=== PATIENT | male | born 1955 | race Caucasian/White ===

== ENCOUNTER → 2021-03-17 | Outpatient (CLI) | payer BC ==
--- NOTE | 2021-03-17 12:29 | RAD ---
EXAM: Chest, 2 views. HISTORY: Shortness of breath. COMPARISON: None. FINDINGS: 2 views of the chest are obtained. There is no infiltrate, pleural effusion or pneumothorax . The heart is normal in size. IMPRESSION: No acute pulmonary finding. Electronically signed by: Yani Douglas MD (03/17/2021 12:26 PM) [facility]
== END ==
LOC: RAD 10:45
PROVIDERS: ATTEND Internal Medicine Pulmonary Disease
DX: R06.02 Shortness of breath (principal)
CPT/HCPCS: 71046

== ENCOUNTER → 2021-03-28 | Outpatient (CLI) | payer BC ==
--- NOTE | 2021-03-28 11:54 | CARD ---
MR#: [id number] Date of Study: 03/28/2021 Ordering Physician: SCOTT PAN, Referring Physician: SCOTT PAN Tech: Patricia العراقي [facility] APPROVED REPORT EXAM: Two-dimensional and M-mode echocardiogram with Doppler and color Doppler. Other Information Quality : AverageHR: 61bpm Rhythm : NSR INDICATION Palpitations RISK FACTORS Hypertension 2D DIMENSIONS RVDd3.9 (2.9-3.5cm)Left Atrium(2D)5.2 (1.6-4.0cm) IVSd1.5 (0.7-1.1cm)Aortic Root(2D)3.8 (2.0-3.7cm) LVDd4.5 (3.9-5.9cm)LVOT Diameter2.6 (1.8-2.4cm) PWd1.2 (0.7-1.1cm)LVDs3.0 (2.5-4.0cm) FS (%) 34.0 %SV57.9 ml LVEF(%)63.1 (>50%) Aortic Valve AoV Peak Zach.138.6cm/sAoV VTI32.3cm AO Peak GR.7.7mmHgLVOT Peak Zach.124.2cm/s AO Mean GR.4mmHgAVA (VMAX)4.59cm2 Mitral Valve MV E Gvsdydjg99.0cm/sMV DECEL LICZ036db MV A Qswvkjrm77.4cm/sE/A Ratio0.9 Pulmonary Valve PV Peak Ieigwzqz765.8cm/s Tricuspid Valve TR P. Mwoinfyk898er/sTR Peak Gr.28mmHg LEFT VENTRICLE The left ventricle is normal size. There is mild concentric left ventricular hypertrophy. The left ve ntricular systolic function is normal and the ejection fraction is within normal range. Estimated eje ction fraction 55-60%. There is normal LV segmental wall motion. Transmitral Doppler flow pattern is Grade I-abnormal relaxation pattern. RIGHT VENTRICLE The right ventricle is normal size. There is normal right ventricular wall thickness. The right ventr icular systolic function is normal. ATRIA The left atrium is borderline dilated. The right atrium size is normal. The interatrial septum is int act with no evidence for an atrial septal defect or patent foramen ovale as noted on 2-D or Doppler i maging. AORTIC VALVE The aortic valve is normal in structure and function. Doppler and Color Flow revealed no significant aortic regurgitation. There is no significant aortic valvular stenosis. MITRAL VALVE The mitral valve is normal in structure and function. There is no evidence of mitral valve prolapse. There is no mitral valve stenosis. Doppler and Color-flow revealed trace to mild mitral regurgitation . TRICUSPID VALVE The tricuspid valve is normal in structure and function. Doppler and Color Flow revealed trace to mil d tricuspid regurgitation. Estimated PAP 30 mmHg. There is no tricuspid valve stenosis. PULMONIC VALVE Doppler and Color Flow revealed trace pulmonic valvular regurgitation. There is no pulmonic valvular stenosis. GREAT VESSELS The aortic root is normal in size. The ascending aorta is normal in size. The IVC is normal in size a nd collapses >50% with inspiration. PERICARDIAL EFFUSION There is no evidence of significant pericardial effusion. Critical Notification Critical Value: No <Conclusion> The left ventricular systolic function is normal and the ejection fraction is within normal range. E stimated ejection fraction 55-60%. There is normal LV segmental wall motion. Signed by : Oscar Purcell, Electronically Approved : 03/28/2021 11:54:12
== END ==
LOC: ECHO 07:45
PROVIDERS: ATTEND Internal Medicine Pulmonary Disease
DX: I08.1 Rheumatic disorders of both mitral and tricuspid valves (principal); R06.02 Shortness of breath
CPT/HCPCS: 93306